=== PATIENT | female | born 1960 | race Caucasian/White ===

== ENCOUNTER 2022-08-17 18:04 | Emergency (ER) | payer BC, SELFPAY ==
--- NOTE | ~2022-08-17 | XR_ITS ---
EXAMINATION: XR chest 2V DATE: 08/17/2022 19:22 INDICATION: Soreness of breath and congestion TECHNIQUE: frontal and lateral views of the chest were obtained. COMPARISON: Chest radiograph dated 09/22/2006 FINDINGS: Bronchial wall thickening and mild opacities in the bilateral lower lung zones. No pleural effusion o r pneumothorax. The cardiomediastinal silhouette is normal. Mild thoracic spondylosis. IMPRESSION: 1. Bronchial wall thickening and mild opacities in bilateral lower lung zones. Differential would inc lude bronchitis with early pneumonia or mild pulmonary edema. Reviewed, dictated and finalized at location [facility] [employer] IMPRESSION: 1. Bronchial wall thickening and mild opacities in bilateral lower lung zones. Differential would include bronchitis with early pneumonia or mild pulmonary ed taylor.
--- NOTE | 2022-08-17 18:06 | ED.URI ---
HPI - URI/Sore Throat General Chief Complaint: Upper Respiratory Infection Stated Complaint: sinus infection; cough; SOB; Time Seen by Provider: 08/17/22 18:36 Source: patient and RN notes reviewed Mode of arrival: ambulatory Limitations: no limitations History of Present Illness HPI Narrative: 61-year-old female presents with concern for one-week history of sinus infection symptoms, cough, shortness of breath. Reports she has an albuterol inhaler that she uses when she gets sick, she used to lasted for o'clock. She reports last 2 days her symptoms have worsened with chills, body aches, sweats. MD elicited complaint: cough and sore throat Related Data Home Medications Medication Instructions Recorded Confirmed albuterol sulfate 90 mcg/actuation 2 puff inhalation Q8-10H 08/17/22 08/17/22 aerosol inhaler aspirin 81 mg tablet,delayed 81 mg PO DAILY 08/17/22 08/17/22 release atorvastatin 40 mg tablet 40 mg PO HS 08/17/22 08/17/22 dulaglutide 3 mg/0.5 mL 3 mg subcut WEEKLY 08/17/22 08/17/22 subcutaneous pen injector (Trulicity) hydrochlorothiazide 12.5 mg capsule 12.5 mg PO DAILY 08/17/22 08/17/22 levothyroxine 125 mcg tablet 125 mcg PO DAILY 08/17/22 08/17/22 lisinopril 5 mg tablet 5 mg PO DAILY 08/17/22 08/17/22 metformin 500 mg tablet 1,000 mg PO DAILY 08/17/22 08/17/22 Allergies Allergy/AdvReac Type Severity Reaction Status Date / Time Penicillins Allergy Unknown HIVES Verified 08/17/22 18:16 Review of Systems Review of Systems: CONSTITUTIONAL: Reports malaise, chills, fatigue EYES: Denies visual changes, redness, or discharge. ENT: Reports rhinorrhea, congestion. Denies sinus pain, otalgia and sore throat. CARDIOVASCULAR: Denies chest pain, palpitations, or edema. RESPIRATORY: Reports cough, dyspnea. GASTROINTESTINAL: Denies abdominal pain, nausea, vomiting, diarrhea SKIN: Denies rash or itching. MUSCULOSKELETAL: Reports myalgia. NEUROLOGIC: Denies headache. All systems reviewed & are unremarkable except as noted in HPI and below PMFSH Comments At time of signature, agree with nursing past medical, surgical, social and family history. There is no relevant family history pertinent to the presenting complaint Exam Narrative: GENERAL: Nontoxic-appearing and in no acute distress. HEAD: Normocephalic EYES: PERRLA, conjunctivae clear ENT: Nares clear, green discharge. Mucous membranes moist. TM pearly leonard with dull light reflex bilaterally; no tragal tenderness. Oropharynx not erythematous without lesions. Tonsils not enlarged and without exudate, no drooling, no hoarseness, no trismus, uvula midline. NECK: Supple. No lymphadenopathy CHEST: Scattered rhonchi, wheeze throughout, diminished in the left lower lobel. Marlena, or stridor. No respiratory distress. Conversational dyspnea HEART: Regular rate and rhythm. No murmur heard. SKIN: Warm, dry, no rash. NEURO: Alert and oriented x3. PSYCH: Normal mood and affect Course Course Emergency Course: Patient is aware of diagnosis, understands and agrees to treatment plan. Anticipatory guidance given. Patient agrees to follow-up as directed and is aware of reasons to seek care at the emergency department. Portions of this record may have been created with voice recognition software Level of Care: Express Care Visit Reevaluation(s) Reevaluation #1: Only mild improvement with aeration and wheezing, will do a 2nd DuoNeb Date: 08/17/22 Time: 19:22 Reevaluation #2: Slight improvement after 2nd DuoNeb. Date: 08/17/22 Time: 20:00 Vital Signs Vital signs: Reviewed. MDM - URI/Sore Throat MDM Narrative Medical decision making narrative: Differential diagnosis considered: [place] virus, strep pharyngitis, allergic rhinitis, upper respiratory tract infection, sinusitis, rhinosinusitis, nasopharyngitis. viral pharyngitis, otitis media, otitis externa, pneumonia, bronchitis, viral cough syndrome, viral syndrome, and influenza. Exam findings show no acute co
[2022-08-17 18:15] VITALS: BP 154/75; PULSE 98; RESP 20; TEMP 37.4; O2SAT 92
[2022-08-17] MEDS: ALBUTEROL SULFATE NEB 2.5 MG/3 ML INH INHALATION ×2 (18:47→19:33)
[2022-08-17] MEDS: IPRATROPIUM BR 0.02% INH SOLN 0.5 MG/2.5 ML VIAL INHALATION ×2 (18:47→19:33)
[2022-08-17 19:51] VITALS: BP 101/49; PULSE 92; O2SAT 95
== END 2022-08-17 20:07 | disposition home or self-care (01) ==
PROVIDERS: Emergency Provider Nurse Practitioner; PCP Internal Medicine
DX: J18.9 Pneumonia, unspecified organism (principal); Z79.82 Long term (current) use of aspirin; Z79.84 Long term (current) use of oral hypoglycemic drugs
CPT/HCPCS: 71046; 94640; 99213; G0463